=== PATIENT | female | born 1950 | race Caucasian/White ===

== ENCOUNTER 2019-10-09 19:52 | Emergency (ER) | payer OTHER, MEDICARE ==
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
[2019-10-09] MEDS ORDERED: IBUPROFEN 600 MG TABLET PO ONE (22:49)
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
[2019-10-09 23:44] VITALS: BP 147/78
== END 2019-10-09 23:42 | disposition home or self-care (01) ==
LOC: ER 19:52
DX: S16.1XXA Strain of muscle, fascia and tendon at neck level, initial encounter (principal); S49.92XA Unspecified injury of left shoulder and upper arm, initial encounter; M25.551 Pain in right hip; V43.52XA Car driver injured in collision with other type car in traffic accident, initial encounter
CPT/HCPCS: 72040; 99283